=== PATIENT | female | born 2000 | race Native Hawaiian/Other Pacific Islander ===

== ENCOUNTER 2021-12-05 18:27 | Emergency (ER) | payer OTHER ==
[~2021-12-05] VITALS: Ht 160 cm; Wt 87.1 kg
[2021-12-05 18:34] VITALS: BP 148/98; TEMP 97.4
== END 2021-12-05 18:55 | disposition home or self-care (01) ==
LOC: ED 18:27
DX: H92.02 Otalgia, left ear (principal); H93.8X2 Other specified disorders of left ear
CPT/HCPCS: 99281

== ENCOUNTER 2022-12-21 08:37 | Emergency (ER) | payer BC, OTHER ==
[~2022-12-21] VITALS: Ht 160 cm; Wt 95.0 kg
[2022-12-21 10:15] VITALS: BP 129/81; TEMP 99.1
== END 2022-12-21 10:15 | disposition home or self-care (01) ==
LOC: ED 08:37
DX: J02.9 Acute pharyngitis, unspecified (principal); F17.210 Nicotine dependence, cigarettes, uncomplicated
CPT/HCPCS: 87651; 99282

== ENCOUNTER 2023-01-24 20:55 | Emergency (ER) | payer BC ==
[~2023-01-24] VITALS: Ht 160 cm; Wt 95.7 kg
[2023-01-24 21:00] VITALS: BP 148/88; TEMP 98.2
== END 2023-01-24 22:48 | disposition home or self-care (01) ==
LOC: ED 20:55
DX: R30.0 Dysuria (principal); F17.290 Nicotine dependence, other tobacco product, uncomplicated
CPT/HCPCS: 81002; 81025; 99283